=== PATIENT | male | born 1960 | race Caucasian/White ===

== ENCOUNTER 2017-08-31 18:15 | Emergency (ER) | payer BC ==
[2017-08-31] MEDS ORDERED: Pantoprazole IV* 40 MG IV ONE (19:06)
[2017-08-31] MEDS ORDERED: Ondansetron INJ* 2 MG/ML VIAL IV ONE (19:06)
[2017-08-31] MEDS ORDERED: NS 0.9% 1000 ML* 1,000 ML IV ONE (19:06)
[2017-08-31 19:24] LABS: ABS Basophils 0.1 10^3/ul (0-0.2); ABS Eosinophils 0.2 10^3/ul (0-0.6); ABS Lymphocytes 1.8 10^3/ul (1.0-4.8); ABS Monocytes 1.4 10^3/ul (0-0.8); ABS Neutrophils 17.5 10^3/ul (1.5-7.7); ABS Nucleated RBC 0 10^3/ul; Eosinophil % 0.8 % (0-6); Hematocrit 51 % (42-52); Hemoglobin 17.5 g/dl (14.0-18.0); Lymphocyte % 8.5 % (25-47); Mean Corpuscular HGB Conc 34 g/dl (31-36); Mean Corpuscular Hemoglobin 30 pg (27-31); Mean Corpuscular Volume 87 fL (80-94); Mean Platelet Volume 8 um3 (7.4-10.4); Nucleated Red Blood Cells % 0; Platelet Count 254 10^3/ul (150-450); Red Cell Distribution Width 14 % (10.5-15); White Blood Count 20.9 10^3/ul (3.5-10.8)
[2017-08-31 19:39] LABS: EGFR Non-African American 93.9 (>60)
[2017-08-31 20:11] LABS: Urine Appearance Clear; Urine Blood 2+ (Negative); Urine Color Yellow; Urine Ketones Trace (Negative); Urine Protein Negative (Negative); Urine Specific Gravity 1.021 (1.010-1.030); Urine Urobilinogen Negative (Negative)
[2017-08-31] MEDS ORDERED: Iohexol 300* (CONTRAST) 10 ML SDV IV ONE (22:10)
[2017-09-01 00:15] VITALS: BP 146/90
--- NOTE | 2017-09-01 00:47 | ED ---
Sandra Rivers Nilda, scribed for Paulie Salvador MD on 08/31/17 at 2230 . Progress - Progress Note Progress Note: This pt was signed out by Dr. Naik, pending dispo, awaiting CT Abd/Pel. CT Abd/ Pel, per radiologist, reveals there is no free air. There are a few scattered tiny cysts noted in the liver. There are no obvious gallstones. There is fatty infiltration of the pancreas. There is no evidence of acute pancreatitis. Nonspecific 3.0 cm left adrenal nodule. There is no hydronephrosis. There are no renal calculi. There is a moderate amount of stool noted in the colon. There is sigmoid diverticulosis without obvious diverticulitis. There are a few mildly prominent fluid and air-filled small bowel loops noted in the lower abdomen possibly mild ileus and/or enteritis. There is no bret intestinal obstruction. There is 3.5 cm fat containing umbilical hernia. There are no incarcerated bowel loops. The appendix is not identified. There is no pericecal or right lower quadrant inflammatory process. Urinary bladder is unremarkable. There are no bladder calculi. Dr. Salvador has reviewed this report. Pt is stable and will be D/C with Dx of epigastric pain. Pt understand and is agreeable to D/C. Course/Dx - Course Course Of Treatment: This pt was signed out by Dr. Naik, pending dispo, awaiting CT Abd/Pel. CT Abd/Pel, per radiologist, reveals there is no free air. There are a few scattered tiny cysts noted in the liver. There are no obvious gallstones. There is fatty infiltration of the pancreas. There is no evidence of acute pancreatitis. Nonspecific 3.0 cm left adrenal nodule. There is no hydronephrosis. There are no renal calculi. There is a moderate amount of stool noted in the colon. There is sigmoid diverticulosis without obvious diverticulitis. There are a few mildly prominent fluid and air-filled small bowel loops noted in the lower abdomen possibly mild ileus and/or enteritis. There is no bret intestinal obstruction. There is 3.5 cm fat containing umbilical hernia. There are no incarcerated bowel loops. The appendix is not identified. There is no pericecal or right lower quadrant inflammatory process. Urinary bladder is unremarkable. There are no bladder calculi. Dr. Salvador has reviewed this report. Pt is stable and will be D/C with Dx of epigastric pain. Pt understand and is agreeable to D/C. - Diagnoses Provider Diagnoses: Epigastric pain The documentation as recorded by the Sandra pitts Nilda accurately reflects the service I personally performed and the decisions made by me, Paulie Salvador MD.
--- NOTE | 2017-09-01 07:51 | RAD ---
INDICATION: Epigastric abdominal pain. COMPARISON: There are no prior studies available for comparison. TECHNIQUE: A CT scan of the abdomen and pelvis was performed with intravenous and oral contrast following intravenous injection of 138 ml of Omnipaque 300 nonionic contrast. Contiguous axial sections were obtained from the lung bases through the symphysis pubis. Images were reconstructed in the coronal and sagittal planes. FINDINGS: There is mild dependent bilateral lower lobe subsegmental atelectasis. No pleural effusion is present. The liver and spleen are normal in size. The liver is decreased in attenuation consistent with fatty infiltration. There are several subcentimeter fluid density lesions within the liver which are too small to characterize by CT although likely represent cysts. No calcified gallstones are seen. The pancreas appears to be within normal limits. There is a 1.6 x 1.0 cm right adrenal nodule. There are 2 nodules in the left adrenal gland measuring 2.6 x 2.7 cm and 1.2 x 1.0 cm. These measure soft tissue density on this contrast enhanced study. The kidneys are normal in size. No significant focal abnormality or hydronephrosis is seen. The aorta is normal in caliber with mild calcific plaque present. No significant enlarged retroperitoneal lymph nodes are seen. The stomach, small and large bowel appear nondistended. There are couple air-fluid levels in nondistended distal small bowel. The appendix is not visualized. No inflammatory changes are seen in the right lower quadrant. There is mild descending and sigmoid diverticulosis without evidence for diverticulitis. There is a periumbilical hernia containing fat. No free intraperitoneal air or fluid is seen. No significant focal osseous abnormality is seen. The results of this examination were discussed with the referring clinician. IMPRESSION: 1. NO EVIDENCE FOR ACUTE FINDING OR CAUSE FOR THE PATIENT'S ABDOMINAL PAIN IS SEEN. 2. BILATERAL ADRENAL NODULES. RECOMMEND A FOLLOW-UP NONCONTRAST CT OF THE ABDOMEN FOR FURTHER EVALUATION. 3. SMALL HYPODENSE HEPATIC LESIONS TOO SMALL TO CHARACTERIZE BY CT ALTHOUGH LIKELY REPRESENTING CYSTS. 4. PERIUMBILICAL HERNIA CONTAINING FAT.
--- NOTE | 2017-09-01 15:13 | ED ---
Sina Rivers Gabriel, scribed for Cory Naik MD on 08/31/17 at 1848 . Abdominal Pain/Male - HPI Summary HPI Summary: This patient is a 56 year old M presenting to [facility] accompanied by his with a chief complaint of ABD pain that began an hour ago. The patient rates the pain 9/10 in severity and compares it to bad stomach ache. Patient reports ABD distension, diaphoresis, nausea, vomiting, diarrhea, and fatigue. Patient denies urinary symptoms and bowel issues. The vomiting, nausea, and diarrhea hit him all at once then the other symptoms occur. A similar episode occurred 90 days ago and he saw his PCP after symptoms resided and got a CT. CT showed enlarged liver, he has stop drinking since then. He has had episodes like this since April. Pt has an appointment with a GI on september 19. - History of Current Complaint Chief Complaint: EDAbdPain Stated Complaint: ABD PAIN Time Seen by Provider: 08/31/17 18:25 Hx Obtained From: Patient Onset/Duration: Lasting Hours, Still Present Timing: Intermittent Severity Initially: Moderate Severity Currently: Moderate Pain Intensity: 9 Pain Scale Used: 0-10 Numeric Location: Diffuse Associated Signs And Symptoms: Positive: Other - ABD distension, diaphoresis, nausea, vomiting, diarrhea, and fatigue. - Allergies/Home Medications Allergies/Adverse Reactions: Allergies Allergy/AdvReac Type Severity Reaction Status Date / Time No Known Allergies Allergy Verified 08/31/17 18:22 PMH/Surg Hx/FS Hx/Imm Hx Endocrine/Hematology History: Denies: Hx Anticoagulant Therapy, Hx Blood Disorders, Hx Diabetes Cardiovascular History: Denies: Hx Atrial Fibrillation, Hx Auto Implanted Cardiovert Defib Respiratory History: Denies: Hx Asthma, Hx Bronchopulmonary Dysplasia, Hx Chronic Obstructive Pulmonary Disease (COPD) Sensory History: Reports: Hx Contacts or Glasses Denies: Hx Glaucoma, Hx Macular Degeneration Opthamlomology History: Reports: Hx Contacts or Glasses Denies: Hx Eye Prosthesis, Hx Glaucoma Infectious Disease History: Unable to Obtain/Confirm Infectious Disease History: Denies: Traveled Outside the [place] in Last 30 Days - Family History Known Family History: Positive: Cardiac Disease, Diabetes, Other - dementia Negative: Hypertension, Renal Disease, Respiratory Disease, Seizure Disorder , Blood Disorder - Social History Alcohol Use: None Alcohol Amount: hx Substance Use Type: Reports: None Smoking Status (MU): Heavy Every Day Tobacco Smoker Review of Systems Positive: Fatigue, Skin Diaphoresis Positive: Abdominal Pain, Vomiting, Diarrhea, Nausea, Other - ABD distension All Other Systems Reviewed And Are Negative: Yes Physical Exam - Summary Physical Exam Summary: Appearance: The patient is well-nourished in no acute distress and in no acute pain. Skin: The skin is warm and dry and skin color reflects adequate perfusion. HEENT: The head is normocephalic and atraumatic. The pupils are equal and reactive. The conjunctivae are clear and without drainage. Nares are patent and without drainage. Mouth reveals moist mucous membranes and the throat is without erythema and exudate. The external ears are intact. The ear canals are patent and without drainage. The tympanic membranes are intact. Neck: the neck is supple with full range of motion and non-tender. There are no carotid bruits. There is no neck vein distension. Respiratory: Chest is non-tender. Lungs are clear to auscultation and breath sounds are symmetrical and equal. Cardiovascular: Heart is regular rate and rhythm. There is no murmur or rub auscultated. There is no peripheral edema and pulses are symmetrical and equal. Abdomen:. Distended and tympanic, Tender in the epigastrium Musculoskeletal: There is no back tenderness noted. Extremities are non-tender with full range of motion. There is good capillary refill. There is no peripheral edema or calf tenderness elicited. Neurological: Patient is alert and oriented to person, place and time. The patient has symmetrical motor strength in all four extremities. Cranial nerves are grossly intact. Deep tendon reflexes are symmetrical and equal in all four extremities. Psychiatric: The patient has an appropriate affect and does not exhibit any anxiety or depression. Vital Signs On Initial Exam: Initial Vitals Temp Pulse Resp BP Pulse Ox 97.0 F 73 24 158/95 97 08/31/17 18:19 08/31/17 18:19 08/31/17 18:19 08/31/17 18:19 08/31/17 18:19 Diagnostics - Vital Signs Vital Signs Temp Pulse Resp BP Pulse Ox 08/31/17 18:19 97.0 F 73 24 158/95 97 - Laboratory Lab Results: Lab Results 08/31/17 08/31/17 08/31/17 Range/Units 19:15 19:15 19:15 WBC 20.9 H (3.5-10.8) 10^3/ul RBC 5.90 H (4.0-5.4) 10^6/ul Hgb 17.5 (14.0-18.0) g/dl Hct 51 (42-52) % MCV 87 (80-94) fL MCH 30 (27-31) pg MCHC 34 (31-36) g/dl RDW 14 (10.5-15) % Plt Count 254 (150-450) 10^3/ul MPV 8 (7.4-10.4) um3 Neut % (Auto) 83.7 H (38-83) % Lymph % (Auto) 8.5 L (25-47) % Carver % (Auto) 6.7 (1-9) % Eos % (Auto) 0.8 (0-6) % Baso % (Auto) 0.3 (0-2) % Absolute Neuts (auto) 17.5 H (1.5-7.7) 10^3/ul Absolute Lymphs (auto) 1.8 (1.0-4.8) 10^3/ul Absolute Monos (auto) 1.4 H (0-0.8) 10^3/ul Absolute Eos (auto) 0.2 (0-0.6) 10^3/ul Absolute Basos (auto) 0.1 (0-0.2) 10^3/ul Absolute Nucleated RBC 0 10^3/ul Nucleated RBC % 0 Sodium 139 (133-145) mmol/L Potassium 3.7 (3.5-5.0) mmol/L Chloride 103 (101-111) mmol/L Carbon Dioxide 28 (22-32) mmol/L Anion Gap 8 (2-11) mmol/L BUN 17 (6-24) mg/dL Creatinine 0.85 (0.67-1.17) mg/dL Est GFR ( Amer) 120.8 (>60) Est GFR (Non-Af Amer) 93.9 (>60) BUN/Creatinine Ratio 20.0 (8-20) Glucose 106 H (70-100) mg/dL Lactic Acid 0.9 (0.5-2.0) mmol/L Calcium 9.6 (8.6-10.3) mg/dL Total Bilirubin 0.70 (0.2-1.0) mg/dL AST 37 (13-39) U/L ALT 29 (7-52) U/L Alkaline Phosphatase 72 (34-104) U/L C-Reactive Protein 2.13 (< 5.00) mg/L Total Protein 7.4 (6.4-8.9) g/dL Albumin 4.4 (3.2-5.2) g/dL Globulin 3.0 (2-4) g/dL Albumin/Globulin Ratio 1.5 (1-3) Lipase 18 (11.0-82.0) U/L Urine Color Urine Appearance Urine pH (5-9) Ur Specific [place] (1.010-1.030) Urine Protein (Negative) Urine Ketones (Negative) Urine Blood (Negative) Urine Nitrate (Negative) Urine Bilirubin (Negative) Urine Urobilinogen (Negative) Ur Leukocyte Esterase (Negative) Urine WBC (Auto) (Absent) Urine RBC (Auto) (Absent) Urine Bacteria (Absent) Urine Glucose (Negative) Urine Ascorbic Acid (Negative) 08/31/17 Range/Units 19:56 WBC (3.5-10.8) 10^3/ul RBC (4.0-5.4) 10^6/ul Hgb (14.0-18.0) g/dl Hct (42-52) % MCV (80-94) fL MCH (27-31) pg MCHC (31-36) g/dl RDW (10.5-15) % Plt Count (150-450) 10^3/ul MPV (7.4-10.4) um3 Neut % (Auto) (38-83) % Lymph % (Auto) (25-47) % Carver % (Auto) (1-9) % Eos % (Auto) (0-6) % Baso % (Auto) (0-2) % Absolute Neuts (auto) (1.5-7.7) 10^3/ul Absolute Lymphs (auto) (1.0-4.8) 10^3/ul Absolute Monos (auto) (0-0.8) 10^3/ul Absolute Eos (auto) (0-0.6) 10^3/ul Absolute Basos (auto) (0-0.2) 10^3/ul Absolute Nucleated RBC 10^3/ul Nucleated RBC % Sodium (133-145) mmol/L Potassium (3.5-5.0) mmol/L Chloride (101-111) mmol/L Carbon Dioxide (22-32) mmol/L Anion Gap (2-11) mmol/L BUN (6-24) mg/dL Creatinine (0.67-1.17) mg/dL Est GFR ( Amer) (>60) Est GFR (Non-Af Amer) (>60) BUN/Creatinine Ratio (8-20) Glucose (70-100) mg/dL Lactic Acid (0.5-2.0) mmol/L Calcium (8.6-10.3) mg/dL Total Bilirubin (0.2-1.0) mg/dL AST (13-39) U/L ALT (7-52) U/L Alkaline Phosphatase (34-104) U/L C-Reactive Protein (< 5.00) mg/L Total Protein (6.4-8.9) g/dL Albumin (3.2-5.2) g/dL Globulin (2-4) g/dL Albumin/Globulin Ratio (1-3) Lipase (11.0-82.0) U/L Urine Color Yellow Urine Appearance Clear Urine pH 5.0 (5-9) Ur Specific [place] 1.021 (1.010-1.030) Urine Protein Negative (Negative) Urine Ketones Trace H (Negative) Urine Blood 2+ H (Negative) Urine Nitrate Negative (Negative) Urine Bilirubin Negative (Negative) Urine Urobilinogen Negative (Negative) Ur Leukocyte Esterase Negative (Negative) Urine WBC (Auto) Trace(0-5/hpf) (Absent) Urine RBC (Auto) 2+(6-10/hpf) H (Absent) Urine Bacteria Absent (Absent) Urine Glucose Negative (Negative) Urine Ascorbic Acid * H (Negative) Result Diagrams: 08/31/17 19:15 08/31/17 19:15 Lab Statement: Any lab studies that have been ordered have been reviewed, and results considered in the medical decision making process. Abdominal Pain Fem Course/Dx - Course Course Of Treatment: Mr. Fonseca suffered the sudden onset of severe epigastric pain after vomiting an hour ago. His lab W/U was OK and he improved a lot with IV protonix. He is pending CT results and I expect he will go home. - Diagnoses Provider Diagnoses: Epigastric pain Discharge - Discharge Plan Condition: Stable Disposition: HOME Patient Education Materials: Epigastric Pain (ED) Forms: *Work Release Referrals: Catracho Jack MD [Primary Care Provider] - 4 Days Additional Instructions: RETURN TO EMERGENCY DEPARTMENT FOR ANY NEW OR WORSENING SYMPTOMS HAVE THE ADRENAL NODULE SEEN ON CT REEVALUATED BY YOUR DOCTOR The documentation as recorded by the Sina pitts Gabriel accurately reflects the service I personally performed and the decisions made by me, Cory Naik MD.
== END 2017-09-01 00:26 | disposition home or self-care (01) ==
LOC: ED 18:15
DX: R10.13 Epigastric pain (principal); Z72.0 Tobacco use
CPT/HCPCS: 36415; 74177; 80053; 81003; 81015; 83605; 83690; 85025; 86140; 96374; 99283; J2405; Q9967